=== PATIENT | male | born 1975 ===

== ENCOUNTER → 2019-08-02 | Outpatient (CLI) | payer OTHER ==
[2019-08-02 13:18] LABS: Basophils % (A) 1 %; Eosinophils # (A) 0.1 k/uL (0-0.7); Eosinophils % (A) 2 %; HCT 37.7 % (39.0-53.0); HGB 12.7 gm/dL (13.0-17.5); Lymphocytes % (A) 31 %; MCH 27.7 pg (25.0-35.0); MCHC 33.5 g/dL (31.0-37.0); MCV 82.5 fL (80.0-100.0); Mean Platelet Volume 6.8; Monocytes # (A) 0.3 k/uL (0-1.0); Monocytes % (A) 9 %; Neutrophils # (A) 1.8 k/uL (1.3-7.7); Neutrophils % (A) 55 %; Platelet Count 190 k/uL (150-450); RBC 4.57 m/uL (4.30-5.90); WBC 3.3 k/uL (3.8-10.6)
== END | disposition home or self-care (01) ==
LOC: LABWHC1 12:51
PROVIDERS: ATTEND Nurse Practitioner
DX: K62.5 Hemorrhage of anus and rectum (principal)
CPT/HCPCS: 36415; 85025

== ENCOUNTER 2019-08-17 09:17 | Day surgery (SDC) | payer OTHER ==
[2019-08-15 14:26] VITALS: BMI 27.3
[~2019-08-17 09:17] MED LIST: LACTATED RINGERS 1,000 ML IV SCH
[2019-08-17 09:47] VITALS: RESP 16; TEMP 97.7
[2019-08-17] MEDS ORDERED: LIDOCAINE 1% 20 ML VIAL (10MG/ML) FOR IV START INTRADERMA ONE (09:52)
[2019-08-17] MEDS ORDERED: LIDOCAINE 1% INJ 10MG/ML (20 ML MDV) ONE (10:04)
[2019-08-17] MEDS ORDERED: fentaNYL (PF) 50 MCG/ML 2 ML AMP ONE (10:04)
[2019-08-17] MEDS ORDERED: PROPOFOL 10 MG/ML 20 ML VIAL IV ONE (10:04)
[2019-08-17] MEDS ORDERED: MIDAZOLAM 2 MG/2 ML VIAL ONE (10:04)
--- NOTE | 2019-08-17 10:37 | P.PCN ---
Date of Procedure: 08/17/19 Description of Procedure: BRIEF HISTORY: 44-year-old male presenting for outpatient colonoscopy for evaluation of painless rectal bleeding. Patient reports 2 years duration without any associated weight loss or abdominal pain. He does report perirectal discomfort, itching sensation of anal swelling. PROCEDURE PERFORMED: Colonoscopy with polypectomy. PREOPERATIVE DIAGNOSIS: Rectal bleed, no prior colonoscopy. ESTIMATED BLOOD LOSS: Minimal. IV sedation per Anesthesia. PROCEDURE: After informed consent was obtained, the patient, was brought into the endoscopy unit. IV sedation was administered by Anesthesia under continuous monitoring. Digital rectal examination was normal. Initially the Olympus CF-190 flexible video colonoscope was then inserted in the rectum, gradually advanced into the cecum without any difficulty. Careful examination was performed as the scope was gradually being withdrawn. Ileocecal valve and the appendiceal orifice were visualized and appeared normal. Prep was excellent. Mucosa of the cecum, ascending colon, transverse colon, descending colon, sigmoid colon, and rectum appeared normal. A 4 mm sessile transverse colon polyp removed with cold snare polypectomy. Diminutive 2 mm rectal polyp removed with cold forcep polypectomy. Retroflexion was performed in the rectum and no lesions were seen, low-grade internal hemorrhoids. The patient tolerated the procedure well. IMPRESSION: Normal-appearing colon from rectum to cecum. Diminutive rectal polyp removed with cold forceps. Small transverse colon polyp removed with cold snare polypectomy. Low-grade internal hemorrhoids. RECOMMENDATIONS: Findings of this examination were discussed with the patient and his friend. Okay to resume diet. Okay to resume medications. Follow-up in gastroenterology clinic as previously scheduled. Await pathology from polypectomies. Recommend repeat colonoscopy in 5 years pending pathology from polypectomies.
[2019-08-17 10:41] VITALS: PULSE 65
[2019-08-17 11:05] VITALS: BP 140/68
== END 2019-08-17 11:12 | disposition home or self-care (01) ==
LOC: ORWHC2ENDO 09:17
PROVIDERS: ATTEND Internal Medicine
DX: D12.3 Benign neoplasm of transverse colon (principal); D12.8 Benign neoplasm of rectum; K64.8 Other hemorrhoids; F17.210 Nicotine dependence, cigarettes, uncomplicated
CPT/HCPCS: 88305; 45380; 45385; J2250; J2001; J3010; J2704